=== PATIENT | female | born 1975 | race Caucasian/White ===

== ENCOUNTER 2020-05-19 00:23 | Emergency (ER) | payer SELFPAY ==
[~2020-05-19] VITALS: Ht 152.4 cm; Wt 91.2 kg
--- OUTSIDE RECORDS SUMMARY | ~2020-05-19 | XMS | Encounter Summary ---
Demographics + + + | Address | [address] | | | [place] [address] | + + + | Home Phone | | + + + | Preferred Language | Unknown | + + + | Marital Status | Single | + + + | Pentecostal Affiliation | Unknown | + + + | Race | White | + + + | Ethnic Group | Not or | + + + Author + + + | Author | [facility] | | | and [place] | + + + | Organization | [facility] | | | and [place] | + + + | Address | Unknown | + + + | Phone | Unavailable | + + + Support + + +---------+ + | Name | Relationship | Address | Phone | + + +---------+ + | Jamal Moss | ECON | Unknown | | + + +---------+ + Care Team Providers + +------+ + | Care Assistant Corporation Counsel Name | Role | Phone | + +------+ + | Robel Lujan MD | PCP | | + +------+ + Reason for Visit +---------+ + | Reason | Comments | +---------+ + | Post Op | neck mass | +---------+ + Encounter Details +--------+---------+ + + + | Date | Type | Department | Care Team | Description | +--------+---------+ + + + | 11/20/ | Office | [facility] | Joel Luna MD | Neck mass (Primary | | 2018 | Visit | OTOLARYNGOLOGY [address] | [address] [place] | Dx) | | | | [address] | [address] [place], [place] | | | | | [place], [place] | [address] | | | | | [address] | | | | | | [phone] | | | +--------+---------+ + + + Social History + + + +--------+------+ | Tobacco Use | Types | Packs/Day | Years | Date | | | | | Used | | + + + +--------+------+ | Current Some Day | Cigarettes | 0.25 | 18 | | | Smoker | | | | | + + + +--------+------+ + +---+---+---+ | Smokeless Tobacco: | | | | | Never Used | | | | + +---+---+---+ + + +---------+ + | Alcohol Use | Drinks/Week | oz/Week | Comments | + + +---------+ + | No | | | | + + +---------+ + + + + | Sex Assigned at | Date Recorded | | | | + + + | Not on file | | + + + documented as of this encounter Last Filed Vital Signs + + + + + | Vital Sign | Reading | Time Taken | Comments | + + + + + | Blood Pressure | - | - | | + + + + + | Pulse | 64 | 11/20/2017 4:07 PM | | | | | PST | | + + + + + | Temperature | - | - | | + + + + + | Respiratory Rate | - | - | | + + + + + | Oxygen Saturation | 96% | 11/20/2017 4:07 PM | | | | | PST | | + + + + + | Inhaled Oxygen | - | - | | | Concentration | | | | + + + + + | Weight | 100.7 kg (222 lb) | 11/20/2017 4:07 PM | | | | | PST | | + + + + + | Height | 152.4 cm (5') | 11/20/2017 4:07 PM | | | | | PST | | + + + + + | Body Mass Index | 43.36 | 11/20/2017 4:07 PM | | | | | PST | | + + + + + documented in this encounter Progress Notes Joel Luna MD - 11/20/2017 4:30 PM PSTPatient is postop removal of a mass in the right shoulder area and she comes in for follow-up visit. The final path report indicates she souza d 6 reactive nodes in this area but no evidence of any lymphoma or cancer. She also had a l ot of fatty tissue in question of the lipoma at the time of surgery. Examination: The right shoulder area is healing very nicely. There is no evidence of any i nfection. The suture was removed without difficulty and this allowed the patient more comfo rtable. She's had some pain in the occipital nerve area and it's helped a lot with uses vasu e Aleve. Impression: Postop stable with reactive cervical lymph nodes. Plan: Patient will use the Aleve to help her with the discomfort and if there is a further or increasing problems she'll recheck with ENT. documented in this encounter Plan of Treatment Not on filedocumented as of this encounter Visit Diagnoses + + | Diagnosis | + + | Neck mass - Primary Swelling, mass, or lump in head and neck | + + documented in this encounter"
--- OUTSIDE RECORDS SUMMARY | ~2020-05-19 | XMS | Encounter Summary ---
Demographics + + + | Address | [address] | | | [place] [address] | + + + | Home Phone | | + + + | Preferred Language | Unknown | + + + | Marital Status | Single | + + + | Lutheran Affiliation | Unknown | + + + | Race | White | + + + | Ethnic Group | Not or | + + + Author + + + | Author | [facility] | | | and [place] | + + + | Organization | [facility] | | | [...] Team Providers + +------+ + | Care Calender Wind Up Helper Name | Role | Phone | + +------+ + PCP | Unavailable | + +------+ + Reason for Visit Diagnostic/Screening (Routine) +--------+--------+ + + + + | Status | Reason | Specialty | Diagnoses / | Referred By | Referred To | | | | | Procedures | Contact | Contact | +--------+--------+ + + + + | Closed | | Radiology | Procedures | Provider, | | | | | | CT Soft | Historical, | | | | | | Tissue Neck | MD [address] | | | | | | [address] | [address] | | | | | | Contrast | [place] | | | | | | | [id number] | | +--------+--------+ + + + + Encounter Details +--------+ + + + + | Date | Type | Department | Care Team | Description | +--------+ + + + + | 08/02/ | Imaging | [facility] | Provider, | | | 2017 | Exam | [facility] | [address] | | | | | [address] | [address] | | | | | [address] | [place] [address] | | | | | [place] [address] | | | | | | [phone] | | | +--------+ + + + + Social History + +-------+ +--------+------+ | Tobacco Use | Types | Packs/Day | Years | Date | | | | | Used | | + +-------+ +--------+------+ | Never Assessed | | | | | + +-------+ +--------+------+ + + + | Sex Assigned at | Date Recorded | | | | + + + | Not on file | | + + + documented as of this encounter Plan of Treatment Not on filedocumented as of this encounter Procedures + +--------+ + + + | Procedure Name | Priori | Date/Time | Associated Diagnosis | Comments | | | ty | | | | + +--------+ + + + | CT SOFT TISSUE NECK | Routin | 07/15/2017 | | Results for this | | W WO CONTRAST | e | 8:20 AM | | procedure are in the | | | | PDT | | results section. | + +--------+ + + + documented in this encounter Results CT Soft Tissue Neck w wo Contrast (07/15/2017 8:20 AM PDT) + + | Specimen | + + | | + + + + + | Narrative | Performed At | + + + | External films | [facility] | | for comparison only - no result from [place]. | | + + + + +---------+ + + | Performing | Address | City/State/Zipcode | Phone Number | | Organization | | | | + +---------+ + + | [facility] | | | | + +---------+ + + documented in this encounter Visit Diagnoses Not on filedocumented in this encounter"
--- OUTSIDE RECORDS SUMMARY | ~2020-05-19 | XMS | Encounter Summary ---
Demographics + + + | Address | [address] | | | [place] [address] | + + + | Home Phone | | + + + | Preferred Language | Unknown | + + + | Marital Status | Single | + + + | Zoroastrianism Affiliation | Unknown | + + + | Race | White | + + + | Ethnic Group | Not or | + + + Author + + + | Author | [facility] | | | and [place] | + + + | Organization | [facility] | | | and [...] Team Providers + +------+ + | Care Natural Resource Officer Name | Role | Phone | + +------+ + | Robel Lujan MD | PCP | | + +------+ + Reason for Visit + + + | Reason | Comments | + + + | New Patient | neck lesions-right side,been there since March | + + + Evaluate & Treat (Routine) +--------+--------+ + + + + | Status | Reason | Specialty | Diagnoses / | Referred By | Referred To | | | | | Procedures | Contact | Contact | +--------+--------+ + + + + | Closed | | Otolaryngolog | Diagnoses | John, | Joel Luna | | | | y | neck lesion | Rad Cadet, | MD [address] | | | | | | [address] | | | | | | [address] | [place] [address] | | | | | | [place], | [place] | | | | | | [place] | [address] Phone: | | | | | | [address] | [phone] | | | | | | Phone: | Fax: | | | | | | [phone] | [phone] | | | | | | Fax: | | | | | | | [phone] | | +--------+--------+ + + + + Encounter Details +--------+---------+ + + + | Date | Type | Department | Care Team | Description | +--------+---------+ + + + | 08/21/ | Office | [facility] | Joel Luna MD | Neck mass (Primary | | 2017 | Visit | OTOLARYNGOLOGY [address] | [address] [place] | Dx) | | | | [address] | [address] [place] | | | | | [place] | [id number] | | | | | [address] | | | | | | [phone] | | | +--------+---------+ + + + Social History + +-------+ +--------+------+ | Tobacco Use | Types | Packs/Day | Years | Date | | | | | Used | | + +-------+ +--------+------+ | Current Some Day | | | | | | Smoker | | | | | + +-------+ +--------+------+ + +---+---+---+ | Smokeless Tobacco: | | | | | Current User | | | | + +---+---+---+ + + + | Sex Assigned at [...] + + + + | Pulse | 78 | 08/21/2017 10:15 AM | | | | | PST | | + + + + + | Temperature | - | - | | + + + + + | Respiratory Rate | 16 | 08/21/2017 10:15 AM | | | | | PST | | + + + + + | Oxygen Saturation | 98% | 08/21/2017 10:15 AM | | | | | PST | | + + + + + | Inhaled Oxygen | - | - | | | Concentration | | | | + + + + + | Weight | 103.4 kg (228 lb) | 08/21/2017 10:15 AM | | | | | PST | | + + + + + | Height | 152.4 cm (5') | 08/21/2017 10:15 AM | | | | | PST | | + + + + + | Body Mass Index | 44.53 | 08/21/2017 10:15 AM | | | | | PST | | + + + + + documented in this encounter H&P Notes Joel Luna MD - 08/21/2017 10:00 AM PST OTOLARYNGOLOGY HISTORY AND PHYSICAL EXAMINATION CHIEF COMPLAINT: Chief Complaint Patient presents with New Patient neck lesions-right side,been there since March HISTORY OF PRESENT ILLNESS: Patient noted about 2-3 months ago there was a small lump in the back of her neck on the ri ght-hand side just below and just back of her ear. It has continued to enlarge over the las t 3 months and patient was seen by her primary physician who advised that she has this furth er evaluated. She's had a little bit of discomfort in the lower neck but otherwise no other complaints. No difficulty swallowing and no problems with sore throat her vocal function p roblems. PAST MEDICAL HISTORY: Past Medical History: Diagnosis Date Diabetes mellitus (HCC) GERD (gastroesophageal reflux disease) PAST SURGICAL HISTORY: Past Surgical History: Procedure Laterality Date APPENDECTOMY 1999 SECTION HYSTERECTOMY 2000 OVARY REMOVAL removal of both ovaries in 2002 TONSILLECTOMY SOCIAL HISTORY: The patient reports that she has been smoking. She uses smokeless tobacco. FAMILY HISTORY: History reviewed. No pertinent family history. CURRENT MEDICATIONS: No current outpatient prescriptions on file. No current facility-administered medications for this visit. ALLERGIES: Allergies Allergen Reactions Penicillins Hives and Shortness Of Breath Latex Morphine Hives REVIEW OF SYSTEMS: GENERALLY: No fever, no night sweats, no anemia, no fatigue, no recent profound weight ch anges. EYES: No eye problems, no use of corrective lenses, no eye injury, no double vision, no bl indness. EARS, NOSE, AND THROAT: No changes in taste or smell, no hearing difficulty, no ringing in the ears, no ear drainage, no dizziness, no voice changes, no difficulty swallowing, no sig nificant snoring, no sleep apnea, no sinus problems, no major dental work. CARDIOVASCULAR: No heart attacks, no heart murmur, no heart fluttering, no chest pain, no ankle swelling. LUNG DISEASE: No shortness of breath, no cough, no tuberculosis, no bloody cough, no asth ma, no emphysema/COPD. PHYSICAL EXAMINATION: Pulse 78 | Resp 16 | Ht 1.524 m (5') | Wt 103.4 kg (228 lb) | SpO2 98% | BMI 44.53 kg/ m Patient is an alert 42-year-old female patient accompanied by her mother. Skin of the face nose and ears were all smooth and healthy. Ear canals are open and clean and drums are regina ar. No scalp irritation or injuries or tenderness is present. On the right neck below the ear and just behind the sternocleidomastoid muscle is a fairly large lymph node that's not 2 cm in size. No other obvious lymphadenopathy was palpable but this is the main 1 it's note d. The thyroid area was smooth and trachea was midline she moves her neck well without any pain or discomfort noted. Oral cavity no mass or lesions were noted. No mass seen in the o ropharynx and posterior pharyngeal wall is smooth. Tongue and soft palate are smooth the mo ves symmetrically. Nasal passages no obstruction no mass or lesions were noted. The left s bethany of the nose was then sprayed well with some Brenden-Synephrine and topical Xylocaine. The n citlalli passage had no mass or lesion noted. CT scan is reviewed and only the neck node is the abnormal finding. The rest of the hypopharyngeal laryngeal no obvious mass or lesions were noted. Special procedure: Fiberoptic scope was placed through the left nasal passage without diff iculty. No mass or lesion in this passage or in the nasopharynx. Posterolateral pharyngeal willis are very smooth. Base of tongue vallecula and epiglottis no mass or lesion or abnorm ality were noted and no evidence of thrush. The vallecula was open and clear. Vocal cords are smooth the moves symmetrically. No redness over the arytenoids and no mass or lesion in the laryngeal area. Piriform sinuses appeared open and clear. She had a normal-appearing hypopharyngeal laryngeal examination. Scope was then removed. ASSESSMENT: DIAGNOSES: 1. Neck mass PLAN: Patient will be scheduled to have the deep node on the right-hand side removed and sent for path examination. The procedure was described to the patient and she desires to move forwa rd and have this removed and this will be scheduled accordingly. ELECTRONICALLY SIGNED BY: Joel Luna MD, 08/21/2017 12:14 documented in this enco unter Plan of Treatment Not on filedocumented as of this encounter Visit Diagnoses + + | Diagnosis | + + | Neck mass - Primary Swelling, mass, or lump in head and neck | + + documented in this encounter"
--- OUTSIDE RECORDS SUMMARY | ~2020-05-19 | XMS | Encounter Summary ---
Demographics + + + | Address | [address] | | | [place] [address] | + + + | Home Phone | | + + + | Preferred Language | Unknown | + + + | Marital Status | Single | + + + | Restoration Affiliation | Unknown | + + + | Race | White | + + + | Ethnic Group | Not or | + + + Author + + + | Author | [facility] | | | and [place] | + + + | Organization | [facility] | | | [...] Team Providers + +------+ + | Care Die Storage Worker Name | Role | Phone | + +------+ + | Bakari Lujan MD | PCP | | + +------+ + Reason for Visit Auth/Cert +--------+--------+ + + + + | Status | Reason | Specialty | Diagnoses / | Referred By | Referred To | | | | | Procedures | Contact | Contact | +--------+--------+ + + + + | | | | Diagnoses | | | | | | | Neck mass | | | | | | | (R22.1) | | | | | | | Procedures | | | | | | | [place] | | | | | | | BX/REMV,LYMP | | | | | | | H NODE,DEEP | | | | | | | CERV | | | | | | | Excision of | | | | | | | Right Deep | | | | | | | Neck Node | | | +--------+--------+ + + + + Encounter Details +--------+---------+ + + + | Date | Type | Department | Care Team | Description | +--------+---------+ + + + | 11/12/ | Surgery | [facility] | Joel Lima MD | Excision of Right | | 2018 | | MED CTR OR [facility]TRA OP | [address] [place] | Deep Neck Node | | | | [address] | [address] [place] | | | | | [place] | [id number] | | | | | [address] | | | | | | [phone] | | | +--------+---------+ + + + [...] + + + | Blood Pressure | 117/77 | 11/12/2017 12:35 PM | | | | | PST | | + + + + + | Pulse | 66 | 11/12/2017 12:35 PM | | | | | PST | | + + + + + | Temperature | 36.2 C (97.2 F) | 11/12/2017 11:55 AM | | | | | PST | | + + + + + | Respiratory Rate | 15 | 11/12/2017 12:35 PM | | | | | PST | | + + + + + | Oxygen Saturation | 94% | 11/12/2017 12:35 PM | | | | | PST | | + + + + + | Inhaled Oxygen | - | - | | | Concentration | | | | + + + + + | Weight | 101 kg (222 lb 10.6 | 11/12/2017 10:12 AM | | | | oz) | PST | | + + + + + | Height | 152.4 cm (5') | 11/12/2017 10:12 AM | | | | | PST | | + + + + + | Body Mass Index | 43.49 | 11/12/2017 10:12 AM | | | | | PST | | + + + + + documented in this encounter Discharge Instructions Instructions Joel Lima MD - 11/12/2017Ok to shower. No heavy lifting [address] lisa strips 5 days. documented in this encounter Medications at Time of Discharge + + + +---------+ + + | Medication | Sig | Dispensed | Refills | Start | End Date | | | | | | Date | | + + + +---------+ + + | acetaminophen | Take 500-1,000 mg by | | 0 | | | | (TYLENOL) 500 mg | mouth every 6 hours | | | | | | tablet | as needed for Pain. | | | | | + + + +---------+ + + | | Take 1-2 tablets by | 20 | 0 | 11/12/19 | | | HYDROcodone-acetamin | mouth every 4 hours | tablet | | 18 | | | ophen (NORCO) 5-325 | as needed for Pain. | | | | | | mg per tablet | | | | | | + + + +---------+ + + | omeprazole | Take 20 mg by mouth | | 0 | | | | (PRILOSEC) 20 mg | Daily as needed. | | | | | | capsule | | | | | | + + + +---------+ + + documented as of this encounter H&P Notes Joel Lima MD - 11/12/2017 10:45 AM [facility] SURGICAL INTERIM HISTORY AND PHYSICAL UPDATE Pt. Name/Age/: David Harris 42 y.o. 1975 Date of admission: 11/12/2017 The current H&P was reviewed. The patient was reexamined. Re-evaluation of the patient co nfirms the necessity for the scheduled procedure. No change has occurred in the patient s condition since the H&P was completed less than 30 days ago. Lungs clear. Heart NSR withou t murmer. No URI. Electronically signed by: Joel Lima MD, 11/12/2017 10:45 [facility] at 2017 10:45 AM [facility], Joel Rosales MD - 11/07/2017 11:35 AM PST H&P Joel Lima MD Otolaryngology OTOLARYNGOLOGY HISTORY AND PHYSICAL EXAMINATION CHIEF COMPLAINT: [...] sore throat her vocal function p roblems. Old chart reviewed and no change in medications, allergies, or review of systems. PAST MEDICAL HISTORY: Past Medical History: Diagnosis Date Diabetes mellitus (HCC) GERD (gastroesophageal reflux disease) PAST SURGICAL HISTORY: Past Surgical History: Procedure Laterality Date APPENDECTOMY 1999 SECTION HYSTERECTOMY 2000 OVARY REMOVAL removal of both ovaries in 2001 TONSILLECTOMY SOCIAL HISTORY: The patient reports that [...] be scheduled accordingly. ELECTRONICALLY SIGNED BY: Joel Lima MD documented in this enco unter Miscellaneous Notes Op Note - Joel Lima MD - 11/12/2017 11:48 AM PST [address] [id number] OPERATIVE REPORT JOEL LIMA MD Patient: DAVID HARRIS Admitting: JOEL E CLARENCE MR #: [id number] LOC: PT TYPE: Adm Date: 11/12/2017 : 1975 DATE OF SURGERY: 11/12/2017. PREOPERATIVE DIAGNOSIS: Right neck mass. POSTOPERATIVE DIAGNOSIS: Right neck mass. OPERATION PERFORMED: Excision of right neck mass. OPERATING SURGEON: Joel Lima MD. COUNTY CORONER: Baldev Carrasco MD. FINDINGS: The patient had what appears to be a lipoma with a couple of reactive nodes present in the area just behind the sternocleidomastoid muscle on the right-hand side. PROCEDURE: After the area had been injected with some Xylocaine, the area was prepped and draped in a sterile fashion. A curvilinear incision was made in the skin over the lump area and carried down through the skin and platysma. Just below this area was the thickened tissue and it was dissected and then each area sealed with the Covidien system as the mass was removed. It appeared to have mostly a lipoma appearance, but also a couple of nodes in it. Once the entire mass was removed, the area below it was a sternocleidomastoid muscle and it was thoroughly palpated and no obvious mass or lesion noted below this area. The wound was then washed well with saline and a specimen sent for pathology examination. The deep layer was closed with 4-0 Vicryl suture and then the skin was closed with a 4-0 subcuticular Prolene. Mastisol was applied to the skin and then Steri-Strips. The patient was awakened from her anesthetic and returned to the recovery room in stable condition. PROGNOSIS: Immediate and remote is good. ESTIMATED BLOOD LOSS: 1 mL. JOEL LIMA MD Dictated by JOEL LIMA MD 11/12/2017 11:48:46 Transcribed on 11/12/2017 17:14:03 by sb job# [id number] Confirmation #: [id number] cc: BAKARI LUJAN MD TOp Note - Joel Lima MD - 11/12/2017 11:45 AM PSTSee dictation #[id number] si gned by Joel Lima MD at 11/12/2017 11:48 AM PSTBrief Op Note - Joel Lima MD - 11/12 11:45 AM PST Brief Operative Note David Harris 42 y.o. female 1975 [id number] Proc. Date 11/12/2017 Preop Dx Neck mass (R22.1) Postop Dx same Procedure Excision of Right Deep Neck Node Anesthesia General Surgeon Joel Lima MD - Primary Baldev Carrasco MD - Assisting E Learning Designer EBL Minimal Findings Findings consistent with scheduled procedure. No other abnormalities found. Complications none Specimens ID Type Source Tests Collected by Time Destination A : RIGHT NECK TISSUE Tissue Neck SPECIMEN TO PATHOLOGY Joel Lima MD 11/12/2017 1135 Pat hology Drains Electronically signed by: Joel Lima MD 11/12/2017 11[facility] at 2017 11:45 AM PSTdocumented in this encounter Plan of Treatment Not on filedocumented as of this encounter Procedures + +--------+ + + + | Procedure Name | Priori | Date/Time | Associated Diagnosis | Comments | | | ty | | | | + +--------+ + + + | BIOPSY / EXCISION | | 11/12/2017 | Neck mass (R22.1) | | | LYMPH NODE NECK DEEP | | 11:00 AM | | | | | | PST | | | + +--------+ + + + +---+--------+ | | Case | | | Notes | | | Case | | | #3 | +---+--------+ + +--------+ +---+ + | POC GLUCOSE | Routin | 11/12/2017 | | Results for this | | | e | 10:37 AM | | procedure are in the | | | | PST | | results section. | + +--------+ +---+ + | SURGICAL PATHOLOGY | Routin | 11/12/2017 | | Results for this | | EXAM | e | 12:00 AM | | procedure are in the | | | | PST | | results section. | + +--------+ +---+ + documented in this encounter Results POC Glucose (11/12/2017 10:37 AM PST) + +-------+ + + + | Component | Value | Ref Range | Performed | Pathologist | | | | | At | Signature | + +-------+ + + + | Glucose, | 98 | 70 - 109 mg/dL | [facility] | | | [facility] | | | | | | [facility] | | | | | [facility] - | | | | | | LABORATORY | | + +-------+ + + + + + | Specimen | + + | Blood | + + + + + + + | Performing | Address | City/State/Zipcode | Phone Number | | Organization | | | | + + + + + | [facility] | [address] | [place] | [phone] | | [facility] | | [address] | | | - LABORATORY | | | | + + + + + Surgical Pathology Exam (11/12/2017 12:00 AM PST) + + | Specimen | + + | | + + + + + | Narrative | Performed At | + + + | SPECIMEN(S): A RIGHT NECK TISSUE SPECIMEN SOURCE: A. RIGHT NECK | IN PATHOLOGY | | TISSUE CLINICAL HISTORY: R22.1 (localized swelling, mass and | [facility] | | lump, neck) FINAL PATHOLOGIC DIAGNOSIS: Right neck tissue: - | | | Six lymph nodes with reactive histologic features, negative for | | | evidence of metastatic malignancy. COMMENT: As part of [employer] | | | [facility]' Quality Improvement Program, this case was reviewed by | | | another member of our pathology staff. JVR:CLR:[facility]:C2NR GROSS | | | DESCRIPTION: The specimen is received in formalin in a container | | | labeled "David Harris, right neck tissue". Received are four unoriented | | | dxa-xnblx-jlfeoe fibrofatty tissue fragments with an aggregate | | | measurement of 4 x 3 x 0.9 cm. Each fragment is inked blue. The | | | specimen is then entirely submitted per the following cassette index: | | | Cassette Index: (A1) Largest fragment, bisected (A2) Second | | | largest fragment, bisected (A3) Smallest two fragments, one of which | | | is bisected CLR:[facility] MICROSCOPIC EXAMINATION: Histologic | | | sections of all submitted blocks are examined by light microscopy. | | | These findings, together with the gross examination, support the | | | pathologic diagnosis. PERFORMING LABORATORY: Tissue processing | | | and slide preparation were performed by [facility], [facility] [address] | | | [facility], [address], [place] [address] (Mass Spectrometry Manager: Nando | | | Isrrael Sims; CLIA#: [id number]). Professional interpretation was | | | performed by [facility], [facility] | | | Branch, [address], [place] [address] (Mass Spectrometry Manager: | | | Nando Sims M.D.; CLIA#: [id number]). Diagnostician: Nando | | | Mary Sims MD Pathologist Electronically Signed 11/14/2017 | | + + + + +---------+ + + | Performing | Address | City/State/Zipcode | Phone Number | | Organization | | | | + +---------+ + + | [facility] | | | | | [place] | | | | + +---------+ + + documented in this encounter Visit Diagnoses Not on filedocumented in this encounter Administered Medications + +--------+---------+------+------+------+ | Medication Order | MAR | Action | Dose | Rate | Site | | | Action | Date | | | | + +--------+---------+------+------+------+ + +---+ | albuterol 2.5 mg/3 mL nebulizer | | | solution 2.5 mg 2.5 mg, | | | Nebulization, ONCE PRN, Wheezing, | | | Starting e 11/12/17 at 1139, | | | For 1 dose, Notify anesthesia if | | | patient is wheezing and does not | | | have a history of asthma or COPD | | | or current smoking., | | | Recovery/Phase I | | + +---+ | | | + +---+ | dexamethasone (DECADRON) 4 | | | mg/mL injection 4 mg 4 mg, | | | Intravenous, ONCE PRN, Nausea, | | | Starting [facility] 11/12/17 at 1139, For | | | 1 dose, Only administer to | | | patients without a diagnosis of | | | diabetes., Recovery/Phase I | | + +---+ | | | + +---+ | ePHEDrine 50 mg/mL injection | | | 5-10 mg 5-10 mg, Intravenous, | | | EVERY 5 MIN PRN, if SBP <90 or | | | HR under 40, Starting [facility] 11/12/17 | | | at 1139, Hold if HR > 100. Hold | | | for SBP >140. Maximum total dose | | | 20mg., Recovery/Phase I | | + +---+ | | | + +---+ + + + +--------+---+---+ | fentaNYL (PF) injection 25-50 | Given by | 11/12/19 | 25 mcg | | | | mcg 25-50 mcg, Intravenous, | Other | 18 12:55 | | | | | EVERY 5 MIN PRN, Pain, Starting | | PM PST | | | | | 11/12/17 at 1139, Maximum | | | | | | | total dose 250 mcg. PACU IV | | | | | | | Narcotic Priority: Only use | | | | | | | fentanyl for immediate post-op | | | | | | | pain (one dose) or breakthrough | | | | | | | pain when any other IV narcotics | | | | | | | ordered have been ineffective (if | | | | | | | ordered). If both morphine and | | | | | | | hydromorphone are ordered, use | | | | | | | morphine first, and use | | | | | | | hydromorphone if morphine | | | | | | | ineffective., Recovery/Phase I | | | | | | + + + +--------+---+---+ +-------+ +--------+---+---+ | Given | 11/12/19 | 25 mcg | | | | | 18 12:29 | | | | | | PM PST | | | | +-------+ +--------+---+---+ | Given | 11/12/19 | 25 mcg | | | | | 18 12:09 | | | | | | PM PST | | | | +-------+ +--------+---+---+ + +---+ | | | + +---+ | HYDROmorphone (DILAUDID) | | | injection 0.25-0.5 mg 0.25-0.5 | | | mg, Intravenous, EVERY 5 MIN PRN, | | | Pain, Starting 11/12/17 at | | | 1139, Maximum total dose 2 mg. | | | PACU IV Narcotic Priority: Only | | | use fentanyl for immediate | | | post-op pain (one dose) or | | | breakthrough pain when any other | | | IV narcotics ordered have been | | | ineffective (if ordered). If | | | both morphine and hydromorphone | | | are ordered, use morphine first, | | | and use hydromorphone if morphine | | | ineffective., Recovery/Phase I | | + +---+ | | | + +---+ + +-------+ +-------+---+---+ | ketorolac (TORADOL) injection | Given | 11/12/19 | 30 mg | | | | 15-30 mg 15-30 mg, Intravenous, | | 18 1:46 | | | | | ONCE PRN, Pain, Maximum dose of | | PM PST | | | | | 30 mg. Reduce maximum dose to 15 | | | | | | | mg if patient has decreased | | | | | | | renal function, is 65 years or | | | | | | | older., Starting Sat11/12/17 at | | | | | | | 1139, For 1 dose, Maximum dose of | | | | | | | 30 mg. Reduce maximum dose to | | | | | | | 15 mg if patient has decreased | | | | | | | renal function, is 65 years or | | | | | | | older. Do NOT administer in | | | | | | | renal failure, if patient is on | | | | | | | any other anticoagulants, or | | | | | | | bleeding diathesis., | | | | | | | Recovery/Phase I | | | | | | + +-------+ +-------+---+---+ + +---+ | | | + +---+ | labetalol (TRANDATE) 5 mg/mL | | | injection 5 mg 5 mg, | | | Intravenous, EVERY 5 MIN PRN, For | | | SBP > 180, DBP > 100, Starting | | | Sat11/12/17 at 1139, Maximum | | | total dose 100mg. Notify | | | anesthesia if patient requires | | | more than 50mg. PARAMETERS KEEP: | | | SBP< 180, SBP >110 HR<110, HR>55, | | | Recovery/Phase I | | + +---+ | | | + +---+ + +---------+ +---+-------+---+ | lactated ringers (LR) infusion | New Bag | 11/12/19 | | 100 | | | at 10-100 mL/hr, Intravenous, | | 18 12:07 | | mL/hr | | | CONTINUOUS, Starting 11/12/17 | | PM PST | | | | | at 1030, TKO., Pre-op | | | | | | + +---------+ +---+-------+---+ +---------+ +--------+-------+---+ | New Bag | 11/12/19 | 1,000 | 100 | | | | 18 10:39 | mLs | mL/hr | | | | AM PST | | | | +---------+ +--------+-------+---+ +---+---+ | | | +---+---+ + +-------+ +-------+---+ + | lidocaine 1%-EPINEPHrine | Given | 11/12/19 | 3 mLs | | Surgical | | 1:100,000 injection PRN, | | 18 11:16 | | | Site | | Starting [facility] 11/12/17 at 1116, | | AM PST | | | | | Intra-op | | | | | | + +-------+ +-------+---+ + + +---+ | | | + +---+ | metoclopramide (REGLAN) 5 mg/mL | | | injection 10 mg 10 mg, | | | Intravenous, ONCE PRN, Nausea, | | | Vomiting, Starting [facility] 11/12/17 at | | | 1139, For 1 dose, Protect from | | | light., Recovery/Phase I | | + +---+ | | | + +---+ | midazolam (VERSED) 1 mg/mL | | | injection 0.5-1 mg 0.5-1 mg, | | | Intravenous, EVERY 5 MIN PRN, | | | Anxiety, Anxiety or agitation. | | | Please do not give unless pain | | | scores are under 7-of-10., | | | Starting [facility] 11/12/17 at 1139, | | | Maximum total dose 2 mg., | | | Recovery/Phase I | | + +---+ | | | + +---+ | ondansetron (ZOFRAN) injection | | | 4 mg 4 mg, Intravenous, ONCE | | | PRN, Nausea, Starting [facility] 11/12/17 | | | at 1139, For 1 dose, | | | Recovery/Phase I | | + +---+ | | | + +---+ + +-------+ +------+---+---+ | ondansetron (ZOFRAN) injection | Given | 11/12/19 | 4 mg | | | | 4 mg 4 mg, Intravenous, EVERY 6 | | 18 1:43 | | | | | HOURS PRN, Nausea, Vomiting, | | PM PST | | | | | Starting [facility] 11/12/17 at 1155, | | | | | | | First line agent Use PO option | | | | | | | unless NPO status or unable to | | | | | | | tolerate., Post-op/Phase II | | | | | | + +-------+ +------+---+---+ +---+---+ | | | +---+---+ + +-------+ +------+---+---+ | oxyCODONE (ROXICODONE) tablet | Given | 11/12/19 | 5 mg | | | | 2.5-10 mg 2.5-10 mg, Oral, EVERY | | 18 2:29 | | | | | 3 HOURS PRN, Pain, Starting Tue | | PM PST | | | | | 11/12/17 at 1155, First dose must | | | | | | | be the lowest dose, can titrate | | | | | | | to effective dose by repeat of | | | | | | | lowest dose every 60 minutes prn | | | | | | | pain, may not exceed maximum dose | | | | | | | ordered per interval. Use Pasero | | | | | | | Sedation Scale., Post-op/Phase | | | | | | | II | | | | | | + +-------+ +------+---+---+ + +---+ | | | + +---+ | promethazine (PHENERGAN) (IV | | | ONLY) injection 6.25 mg 6.25 mg, | | | Intravenous, EVERY 6 HOURS PRN, | | | Nausea, Vomiting, Starting Tue | | | 11/12/17 at 1355, Vesicant. When | | | ordered IV push: Dilute to | | | 10-20mL with NS. Give over 2-3 | | | minutes into large vein. Do not | | | give in hand/wrist or foot/ankle | | | vein. Max dose 12.5mg if giving | | | peripherally., Post-op/Phase II | | + +---+ | | | + +---+ | scopolamine (TRANSDERM-SCOP) 1 | | | mg/3 days 1 patch 1 patch, | | | Transdermal, ONCE PRN, PRN for | | | adult patients with history of | | | PONV. Hold for patients with | | | glaucoma, dementia, altered | | | mental status, or history of | | | allergy to Scopolamine. Apply | | | to mastoid process behind ear., | | | Starting 11/12/17 at 1012, For | | | 1 dose, PRN for adult patients | | | with history of PONV. Hold for | | | patients with glaucoma, dementia, | | | altered mental status, or | | | history of allergy to | | | Scopolamine. Apply to mastoid | | | process behind ear., Pre-op | | + +---+ | | | + +---+ documented in this encounter
--- OUTSIDE RECORDS SUMMARY | ~2020-05-19 | XMS | Encounter Summary ---
Demographics + + + | Address | [address] | | | [place] [address] | + + + | Home Phone | | + + + | Preferred Language | Unknown | + + + | Marital Status | Single | + + + | Gnosticism Affiliation | Unknown | + + + | Race | White | + + + | Ethnic Group | Not or | + + + Author + + + | Author | [facility] | | | and [place] | + + + | Organization | [facility] | | | [...] Team Providers + +------+ + | Care Manager Sourcing Name | Role | Phone | + +------+ + | Robel Lujan MD | PCP | | + +------+ + Encounter Details +--------+ + + + + | Date | Type | Department | Care Team | Description | +--------+ + + + + | 08/29/ | Episode | [facility] | Asha Lopez | | | 2017 | Changes | OTOLARYNGOLOGY [address] | [address] [employer] | | | | | [address] [facility] [address] | | | | | | [place] | | | | | | [address] | | | | | | [phone] | | | +--------+ + + + [...] filedocumented as of this encounter Visit Diagnoses Not on filedocumented in this encounter"
--- OUTSIDE RECORDS SUMMARY | ~2020-05-19 | XMS | Encounter Summary ---
Demographics + + + | Address | [address] | | | [place] [address] | + + + | Home Phone | | + + + | Preferred Language | Unknown | + + + | Marital Status | Single | + + + | Latter-Day Affiliation | Unknown | + + + | Race | White | + + + | Ethnic Group | Not or | + + + Author + + + | Author | [facility] | | | and [place] | + + + | Organization | [facility] | | | and [...] Team Providers + +------+ + | Care Tufting Machine Operator Name | Role | Phone | + [...] | | | | | | CT Head w | Historical, | | | | | | wo Contrast | [address] | | | | | | | [address] | | | | | | | [place] | | | | | | | [address] | | +--------+--------+ + + + + Encounter Details +--------+ + + + + | Date | Type | Department | Care Team | Description | +--------+ + + + + | 08/02/ | Imaging | [facility] | Provider, | | | 2017 | Exam | MED CTR EXTERNAL | [address] | | | | | IMAGING [address] | [address] | | | | | [address] [place] | [place] [address] | | | | | [place] [address] | | | | | | [phone] | | | +--------+ + + + [...] + +--------+ + + + | CT HEAD W WO | Routin | 07/15/2017 | | Results for this | | CONTRAST | e | 8:30 AM | | procedure are in the | | | | PDT | | results section. | + +--------+ + + + documented in this encounter Results CT Head w wo Contrast (07/15/2017 8:30 AM PDT) + + | Specimen | + + | | + + + + + | Narrative | Performed At | + + + | External films | [facility] | | for comparison only - no result from [place]. | | + + + + +---------+ + + | Performing | Address | City/State/Zipcode | Phone Number | | Organization | | | | + +---------+ + + | [facility] | | | | + +---------+ + + documented in this encounter Visit Diagnoses Not on filedocumented in this encounter"
--- OUTSIDE RECORDS SUMMARY | ~2020-05-19 | XMS | Encounter Summary ---
Demographics + + + | Address | [address] | | | [place] [address] | + + + | Home Phone | | + + + | Preferred Language | Unknown | + + + | Marital Status | Single | + + + | Restorationist Affiliation | Unknown | + + + | Race | White | + + + | Ethnic Group | Not or | + + + Author + + + | Author | [facility] | | | and [place] | + + + | Organization | [facility] | | | and [...] Team Providers + +------+ + | Care Cover Assembler Name | Role | Phone | + +------+ + | Robel Lujan MD | PCP | | + +------+ + Reason for Visit + +--------+ + | Reason | Onset | Comments | | | Date | | + +--------+ + | Insurance | 09/17/ | | | Authorization | 2017 | | + +--------+ + Encounter Details +--------+ + + + + | Date | Type | Department | Care Team | Description | +--------+ + + + + | 09/17/ | Telephone | [facility] [place] | Joel Luna MD | Insurance | | 2017 | | OTOLARYNGOLOGY [address] | [address] [place] | Authorization | | | | [address] [facility] [address] | [address] [place], [place] | | | | | [place], [place] | [address] | | | | | [address] | | | | | | [phone] | | | +--------+ + + + [...] + + documented as of this encounter Miscellaneous Notes Telephone Encounter - Chary Durham - 10/01/2017 4:57 PM PSTPatient called to update i nsurance. Everything is up to date now. Electronically signed by Chary Durham at 018 4:57 PM PSTTelephone Encounter - Agueda Harper - 09/24/2017 8:39 AM PSTAttempted to contact patient in regards to updating insurance information. I was not able to leave a [employer] e mail message, the phone line rang busy. Tried x2. Waiting final inspection supervisor back to update insurance . elephone Encounter - Asha Zamora Depalletizer Operator - 09/17/2017 10:16 AM PSTCalled and spoke to patient jona ing her know about her insurance. Patient states that she got new insurance information but doesn't start till September. She is going to call her insurance company to get all the inform ation then call us so we can enter that into the computer. Told patient to ask for sarah. Arambula ectronically signed by Asha Lopez Depalletizer Operator at 09/17/2017 10:18 AM PSTdocume nted in this encounter Plan of Treatment Not on filedocumented as of this encounter Visit Diagnoses Not on filedocumented in this encounter"
--- OUTSIDE RECORDS SUMMARY | ~2020-05-19 | XMS | Encounter Summary ---
Demographics + + + | Address | [address] | | | [place] [address] | + + + | Home Phone | | + + + | Preferred Language | Unknown | + + + | Marital Status | Single | + + + | Anabaptist Affiliation | Unknown | + + + | Race | White | + + + | Ethnic Group | Not or | + + + Author + + + | Author | [facility] | | | and [place] | + + + | Organization | [facility] | | | and [...] Team Providers + +------+ + | Care Hat Model Name | Role | Phone | + +------+ + | Robel Lujan MD | PCP | | + +------+ + Reason for Visit + +--------+ + | Reason | Onset | Comments | | | Date | | + +--------+ + | Surgery Appointment | 11/05/ | | | | 2017 | | + +--------+ + Encounter Details +--------+ + + + + | Date | Type | Department | Care Team | Description | +--------+ + + + + | 11/05/ | Telephone | [facility] | Joel Luna MD | Surgery Appointment | | 2018 | | OTOLARYNGOLOGY [address] | [address] [place] | | | | | [address] [facility] [address] | [address] [place], [place] | | | | | [place] | [address] | | | | | [address] | | | | | | [phone] | | | +--------+ + + + [...] this encounter Miscellaneous Notes Telephone Encounter - Bernice Etienne, Val[place] - 11/05/2017 4:18 PM PSTCalled meliton gustafson and let her know her surgery check in time for 0945 with a start time 1045 for 11/12/17 . Let patient know that she can't have anything to eat or drink after midnight the night bef ore and that she would need a ride home after the procedure. Patient asked if we was just go ing to poke her neck with a needle or if she was going to get an encision. I let patient charlene w that it does say encision. Electronically signed by Bernice Etienne, Valver at 4:22 PM PSTdocumented in this encounter Plan of Treatment Not on filedocumented as of this encounter Visit Diagnoses Not on filedocumented in this encounter"
--- OUTSIDE RECORDS SUMMARY | ~2020-05-19 | XMS | Encounter Summary ---
Demographics + + + | Address | [address] | | | [place] [address] | + + + | Home Phone | | + + + | Preferred Language | Unknown | + + + | Marital Status | Single | + + + | Nondenominational Affiliation | Unknown | + + + | Race | White | + + + | Ethnic Group | Not or | + + + Author + + + | Author | [facility] | | | and [place] | + + + | Organization | [facility] | | | [...] Team Providers + +------+ + | Care Subway Train Operator Name | Role | Phone | [...] | | | | | | | [place] | | | | | | | [...] | +--------+ + + + + | 11/12/ | Hospital | [facility] | Joel Lima MD | Neck mass | | 2018 | Encounter | [facility] | [address] [place] | | | | | [address] | [address] [place] | | | | | [place] | [address] | | | | | [address] | | | | | | [phone] | | | +--------+ + + + + Social History + + [...] + + + | Blood Pressure | 136/81 | 11/12/2017 2:00 PM | | | | | PST | | + + + + + | Pulse | 77 | 11/12/2017 2:00 PM | | | | | PST | | + + + + + | Temperature | 36.2 C (97.2 F) | 11/12/2017 11:55 AM | | | | | PST | | + + + + + | Respiratory Rate | 20 | 11/12/2017 2:00 PM | | | | | PST | | + + + + + | Oxygen Saturation | 98% | 11/12/2017 2:00 PM | | | | | PST [...] Joel Lima MD - 11/12/2017 10:45 AM [facility] SURGICAL INTERIM HISTORY AND PHYSICAL UPDATE Pt. [...] by: Joel Lima MD, 11/12/2017 10:45 [facility] at 2017 [facility] Rosales [facility] - 11/07/2017 11:35 AM [...] Lima MD - 11/12/2017 11:48 AM PST [address] [address] OPERATIVE REPORT JOEL LIMA MD Patient: DAVID HARRIS Admitting: JOEL LIMA MR #: [id number] LOC: PT TYPE: Adm Date: 11/12/2017 : 1975 DATE OF SURGERY: 11/12/2017. PREOPERATIVE DIAGNOSIS: Right neck mass. POSTOPERATIVE DIAGNOSIS: Right neck mass. OPERATION PERFORMED: Excision of right neck mass. OPERATING SURGEON: Joel Lima MD. HAUNTED HISTORY TOUR GUIDE: Baldev Carrasco MD. FINDINGS: The patient had [...] Transcribed on 11/12/2017 17:14:03 by sb job# [id number] Confirmation #: [id number] cc: BAKARI LUJAN MD TOp Note - Joel Lima MD - 11/12/2017 11:45 AM PSTSee dictation #[id number] si gned by Joel Lima MD at 11/12/2017 11:48 AM PSTBrief Op Note - Joel Lima MD - 11/12 11:45 AM PST Brief Operative Note David Harris 42 y.o. female 1975 [id number] Proc. Date 11/12/2017 Preop Dx Neck mass (R22.1) Postop Dx same Procedure Excision of Right Deep Neck Node Anesthesia General Surgeon Joel Lima MD - Primary Baldev Carrasco MD - Assisting Professional Development Director EBL Minimal Findings Findings consistent with scheduled procedure. No other abnormalities found. Complications none Specimens ID Type Source Tests Collected by Time Destination A : RIGHT NECK TISSUE Tissue Neck SPECIMEN TO PATHOLOGY Joel Lima MD 11/12/2017 1135 Pat hology Drains Electronically signed by: Joel Lima MD 11/12/2017 11:[facility] at [...] | + + + + + | [facility] | [address] | [place], [place] | [phone] | | [facility] | | [address] | | | - LABORATORY | | | | + + + + + Surgical Pathology Exam (11/12/2017 12:00 AM PST) + + | Specimen | + + | | + + + + + | Narrative | Performed At | + + + | SPECIMEN(S): A RIGHT NECK TISSUE SPECIMEN SOURCE: A. RIGHT NECK | [facility] | | TISSUE CLINICAL HISTORY: R22.1 (localized swelling, mass and | INCYTE | | lump, neck) FINAL PATHOLOGIC DIAGNOSIS: Right neck tissue: - | | | Six lymph nodes with reactive histologic features, negative for | | | evidence of metastatic malignancy. COMMENT: As part of [facility] | | | [facility]' Quality Improvement Program, this case was reviewed by | | | another member of our pathology staff. JVR:CLR:[facility]:C2NR GROSS | | | DESCRIPTION: The specimen is received in formalin in a container | | | labeled "David Harris, right neck tissue". Received are four unoriented | | | lap-httpv-pruxge fibrofatty tissue fragments with an aggregate | [...] of which | | | is bisected CLR:[facility] MICROSCOPIC EXAMINATION: Histologic | | | sections of all submitted blocks are examined by light microscopy. | | | These findings, together with the gross examination, support the | | | pathologic diagnosis. PERFORMING LABORATORY: Tissue processing | | | and slide preparation were performed by [facility] | | | [facility], [address], [place] [address] (Jewel Sorter: Nando | | | Isrrael Sims; CLIA#: [id number]). Professional interpretation was | | | performed by [facility], [facility] | | | Branch, [address] [place] [address] (Jewel Sorter: | | | Nando Sims M.D.; CLIA#: [id number]). Diagnostician: Nando | | | Mary Sims [...] + documented in this encounter Visit Diagnoses + + | Diagnosis | + + | Neck mass - Primary Swelling, mass, or lump in head and neck | + + documented in this encounter Administered Medications + +--------+---------+------+------+------+ | Medication Order | MAR | Action | Dose | Rate | Site | | | Action | Date | | | | + +--------+---------+------+------+------+ + +---+ | albuterol 2.5 mg/3 mL nebulizer | | | solution 2.5 mg 2.5 mg, | | | Nebulization, ONCE PRN, Wheezing, | | | Starting 11/12/17 at 1139, | | | For [...] ONCE PRN, Nausea, | | | Starting 11/12/17 at 1139, For | | | [...] | | | HR under 40, Starting Tu11/12/17 | | | at 1139, Hold if [...] PM PST | | | | | e 11/12/17 at 1139, Maximum | | | [...] MIN PRN, | | | Pain, Starting e 11/12/17 at | | | 1139, Maximum [...] | | | | | older., Starting 11/12/17 at | | | | | | [...] DBP > 100, Starting | | | 11/12/17 at 1139, Maximum | | | total [...] PST | | | | +---------+ +--------+-------+---+ + +---+ | | | + +---+ | metoclopramide (REGLAN) 5 mg/mL | | | injection 10 mg 10 mg, | | | Intravenous, ONCE PRN, Nausea, | | | Vomiting, Starting e 11/12/17 at | | | 1139, For [...] are under 7-of-10., | | | Starting 11/12/17 at 1139, | | | Maximum total dose 2 mg., | | | Recovery/Phase I | | + +---+ | | | + +---+ | ondansetron (ZOFRAN) injection | | | 4 mg 4 mg, Intravenous, ONCE | | | PRN, Nausea, Starting Sat11/12/17 | | | at 1139, For 1 [...] PST | | | | | Starting Sat11/12/17 at 1155, | | | | | [...] process behind ear., | | | Starting Sat11/12/17 at 1012, For | | | 1 [...]
--- OUTSIDE RECORDS SUMMARY | ~2020-05-19 | XMS | Encounter Summary ---
Demographics + + + | Address | [address] | | | [place] [address] | + + + | Home Phone | | + + + | Preferred Language | Unknown | + + + | Marital Status | Single | + + + | Baptism Affiliation | Unknown | + + + [...] Team Providers + +------+ + | Care Nursing Teacher Name | Role | Phone | + +------+ + | Robel Lujan MD | PCP | | + +------+ + Encounter Details +--------+ + + + + | Date | Type | Department | Care Team | Description | +--------+ + + + + | 08/26/ | Orders Only | [facility] [place] | Joel Luna MD | Neck mass (Primary | | 2017 | | OTOLARYNGOLOGY [address] | [address] [place] | Dx) | | | | [address] | [address] [place], [place] | | | | | [place], [place] | [address] | | | | | [address] | | | | | | [phone] | | | +--------+ + + + [...]
--- OUTSIDE RECORDS SUMMARY | ~2020-05-19 | XMS | Clinical Summary ---
Demographics + + + | Address | [address] | | | [place] [address] | + + + | Home Phone | | + + + | Preferred Language | Unknown | + + + | Marital Status | Single | + + + | Protestant Affiliation | Unknown | + + + | Race | White | + + + | Ethnic Group | Not or | + + + Author + + + | Author | [facility] | | | and [place] | + + + | Organization | [facility] | | | and [...] Team Providers + +------+ + | Care Semiconductor Technician Name | Role | Phone | + +------+ + | Robel Lujan MD | PCP | | + +------+ + Allergies + + + + + + | Active Allergy | Reactions | Severity | Noted | Comments | | | | | Date | | + + + + + + | Latex | Rash | Low | 08/20/20 | | | | | | 17 | | + + + + + + | Morphine | Hives | Medium | 08/20/20 | | | | | | 17 | | + + + + + + | Penicillins | Hives, Shortness Of | High | 08/20/20 | | | | Breath | | 17 | | + + + + + + Medications + + + +---------+------+------+-------+ | Medication | Sig | Dispensed | Refills | Star | End | Statu | | | | | | t | Date | s | | | | | | Date | | | + + + +---------+------+------+-------+ | omeprazole | Take 20 mg by mouth | | 0 | | | Activ | | (PRILOSEC) 20 mg | Daily as needed. | | | | | e | | capsule | | | | | | | + + + +---------+------+------+-------+ | acetaminophen | Take 500-1,000 mg by | | 0 | | | Activ | | (TYLENOL) 500 mg | mouth every 6 hours | | | | | e | | tablet | as needed for Pain. | | | | | | + + + +---------+------+------+-------+ | | Take 1-2 tablets by | 20 | 0 | / | | Activ | | HYDROcodone-acetamin | mouth every 4 hours | tablet | | 3/20 | | e | | ophen (NORCO) 5-325 | as needed for Pain. | | | 18 | | | | mg per tablet | | | | | | | + + + +---------+------+------+-------+ Active Problems + + + | Problem | Noted Date | + + + | Adverse effect of anesthesia | 11/12/2017 | + + + + + | Overview: slow to wake up | + + + + + | Smoker - Some Days | 11/12/2017 | + + + | Obesity, Class III, BMI 40-49.9 (Morbid obesity) | 11/12/2017 | + + + | Decreased glomerular filtration rate (GFR) | 11/12/2017 | + + + | H/O Kidney stones | 11/12/2017 | + + + | H/O Hysterectomy | 11/12/2017 | + + + | Neck mass | 08/26/2017 | + + + | GERD (gastroesophageal reflux disease) | 08/20/2017 | + + + | H/O Migraine headaches | 08/20/2017 | + + + | Diabetes mellitus type II - DIET Controlled | 08/20/2017 | + + + Social History + + [...] on file | | + + + Last Filed Vital Signs + + + [...] | | + + + + + Plan of Treatment + + +-------+ + | Health Maintenance | Due Date | Last | Comments | | | | Done | | + + +-------+ + | Vaccine: | | | | | Dtap/Tdap/Td (1 - | 4 | | | | Tdap) | | | | + + +-------+ + | Cervical Cancer | | | | | Screening (Pap) | 5 | | | + + +-------+ + | Vaccine: Influenza | | | | | (#1) | 0 | | | + + +-------+ + Results Not on filefrom Last 3 Months Insurance + +--------+ +--------+ +---------+------+ | Payer | Benefi | Subscriber | Effect | Phone | Address | Type | | | t Plan | ID | freeman | | | | | | / | | Dates | | | | | | Group | | | | | | + +--------+ +--------+ +---------+------+ | [employer] | PHP | [id number] | 09/30/19 | [phone] | | PPO | | PLAN | PERSON | | 18-Pre | 5 | | | | | AL | | sent | | | | | | OPEN | | | | | | | | OPTION | | | | | | + +--------+ +--------+ +---------+------+ + +--------+ +--------+ + + | Guarantor Name | Accoun | Relation to | Date | Phone | Billing Address | | | t Type | Patient | of | | | | | | | | | | + +--------+ +--------+ + + | Angela Decker | Person | Self [birth year] | [address] | | | al/[place] | | 1975 | [phone] | [place] | | | [place] | | | [address] (Home) | [address] | + +--------+ +--------+ + + Advance Directives + + + + + | Type | Date Recorded | Patient | Explanation | | | | Cotton Buyer | | + + + + + | Power of | | | | | Vehicle Body Sander | | | | + + + + + | Advance | 11/12/2017 9:56 | | | | Directive | AM | | | + + + + + + + + + + | Code Status | Date | Date | Comments | | | Activated | Inactivated | | + + + + + | Full Code | 11/12/2017 | 11/12/2017 | | | | 11:55 AM | 4:33 PM | | + + + + +"
--- OUTSIDE RECORDS SUMMARY | ~2020-05-19 | XMS | Encounter Summary ---
Demographics + + + | Address | [address] | | | [place] [address] | + + + | Home Phone [...] Team Providers + +------+ + | Care Ranch Supervisor Name | Role | Phone | + [...] | | | | | | | [place] | | | | | | | [...] + + + + | 11/12/ | Anesthesia | [facility] | Sarkis Rico | | | 2018 | Event | [facility] | PMD [address] | | | | | [address] | [place] | | | | | [place] | [address] | | | | | [address] | [phone] | | | | | [phone] | | | +--------+ + + + + Anesthesia Record + + + + + | Procedure Name | Responsible | Anesthesia Start | Anesthesia Stop Time | | | Anesthesiologist | Time | | + + + + + | Excision of Right | Sarkis Rico, | 11/12/17 1057 | 11/12/17 1156 | | Deep Neck Node | MD | | | | (Right Neck) | | | | + + + + + +----+---+ + + | Da | T | Event | Comment | | te | i | | | | | m | | | | | e | | | +----+---+ + + | 02 | 1 | | | | /1 | 0 | | | | 3/ | 5 | | | | 20 | 0 | | | | 18 | | | | +----+---+ + + | | 1 | An Checkout | Pre-use anesthesia machine/equipment checkout. | | | 0 | | | | | 5 | | | | | 0 | | | +----+---+ + + | | 1 | an rebekah now | Anesthesia Ready | | | 0 | | | | | 5 | | | | | 1 | | | +----+---+ + + | | 1 | An Start | Room ready, anesthesia equipment checked, essential drugs & | | | 0 | | equipment available. Patient Identity checked, anesthesia plan | | | 5 | | explained and consent obtained. Patient transported to OR, | | | 7 | | Monitors applied. Reassessment prior to anesthesia | | | | | induction/procedure. | +----+---+ + + | | 1 | An Start | | | | 0 | Data | | | | 5 | | | | | 8 | | | +----+---+ + + | | 1 | an rebekah now | | | | 1 | | | | | 0 | | | | | 0 | | | +----+---+ + + | | 1 | AN | Per surgeon request | | | 1 | Antibiotic | | | | 0 | declined | | | | 1 | | | +----+---+ + + | | 1 | Preoxygenat | Oxygen administered, patient sedated, ventilating spontaneously. | | | 1 | ed | | | | 0 | | | | | 3 | | | +----+---+ + + | | 1 | An | | | | 1 | Induction | | | | 0 | | | | | 5 | | | +----+---+ + + | | 1 | An | Smooth IV induction, mask airway established. Direct Laryngoscopy | | | 1 | Intubation | , ETT placed. BSEB/ETCO2 (auscultation and capnography) to | | | 0 | | confirm placement. Depth noted. Ventilator on. | | | 7 | | | +----+---+ + + | | 1 | Pre-Procedu | | | | 1 | ral Timeout | | | | 1 | Completed | | | | 5 | | | +----+---+ + + | | 1 | First | | | | 1 | Inc/Proc St | | | | 1 | | | | | 6 | | | +----+---+ + + | | 1 | Oropharynx | | | | 1 | Suctioned | | | | 4 | | | | | 8 | | | +----+---+ + + | | 1 | Extubated | | | | 1 | Deep | | | | 4 | | | | | 9 | | | +----+---+ + + | | 1 | an rebekah now | PACU | | | 1 | | | | | 5 | | | | | 1 | | | +----+---+ + + | | 1 | an stop | | | | 1 | data | | | | 5 | | | | | 1 | | | +----+---+ + + | | 1 | An Stop | Patient handed off to recovery nurse. | | | 5 | | | | | 6 | | | +----+---+ + + +------+ | Meds | +------+ + + + | Name | Total | + + + | midazolam | 2 mg | + + + | propofol | 175 mg | + + + | fentaNYL injection (2 mL) | 100 mcg | + + + | cisatracurium | 6 mg | + + + | ondansetron | 4 mg | + + + | dexamethasone | 6 mg | + + + | lactated ringers (LR) infusion | 1,800 mL | + + + + + | Name | + + | N2O Flow Rate (L/Min) | + + | O2 Flow Rate (L/Min) | + + | Insp O2 | + + | Exp SEV | + + | Air Flow Rate (L/Min) | + + + + | No blood administrations on file. | + + +--------+ + + + | Type | Details | Placement | Removal | +--------+ + + + | Periph | 11/12/17; 1038; Right; | 11/12/17 1038 by | 11/12/17 1423 by Florentin | | eral | Antecubital; [id number] | Ana Cortes RN | Natalya Keller RN | | IV | catheter system; 20 gauge; | | | | | distraction, intradermal | | | | | injection; 11/12/17; 1423 | | | +--------+ + + + | Airway | Placement Date: 11/12/17; | 11/12/17 110 by | 11/12/17 1155 by | | | Placement Time: 1107 (created via | Sarkis Rico, | Toni Sorensen RN | | | procedure documentation); Mask | MD | | | | Ventilation: EZ; Airway Grade: | | | | | 2a; Laryngoscope Blade Size: 3; | | | | | Attempts: 1; Airway Type: | | | | | endotracheal; Size: 6.5; Airway | | | | | Tube Secured At: 21; Trauma: | | | | | none; Other Equipment: stylette; | | | | | Placement Check: exhaled CO2 | | | | | detection device, video | | | | | laryngoscope, bilateral chest | | | | | rise, breath sounds equal | | | | | bilaterally; Removal Date: | | | | | 11/12/17; Removal Time: 1155; | | | | | Additional Comments: Neutral Head | | | | | Position, no neck flexion or | | | | | extension attempted. Smooth IV | | | | | induction, mask airway | | | | | established. Direct Laryngoscopy | | | | | with Gross Laryngoscope, ETT | | | | | placed under video guidance. | | | | | BSEB/ETCO2 (auscultation and | | | | | capnography) to confirm | | | | | placement. Depth noted. | | | | | Ventilator on. | | | +--------+ + + + | Read | 11/12/17; 1129; Right; neck; | 11/12/17 1129 by | 11/12/17 1423 by Florentin | | only - | 11/12/17; 1423 | Maninder Hernandez RN | L [place] Keller | | | | | | | Incisi | | | | | on | | | | +--------+ + + + documented in this encounter Social History + + + +--------+------+ | [...] + + documented as of this encounter OR Notes Anesthesia Postprocedure Evaluation - Sarkis Rico MD - 11/12/2017 12:33 PM PSTForm atting of this note might be different from the original. ANESTHESIA POSTANESTHESIA EVALUATION Angela Decker 42 y.o. female 1975 [id number] Procedure(s) Excision of Right Deep Neck Node (Right Neck) Cooperates? Yes Mental Status Performs simple tasks. Respiratory Satisfactory - Airway patent (self maintained). Cardiovascular Satisfactory - Blood pressure and heart rate acceptable Temperature Satisfactory Pain Satisfactory N/V Control Satisfactory Hydration Satisfactory - No signs of dehydration Complications None apparent Vitals: 11/12/17 1210 11/12/17 1215 11/12/17 1220 BP: 110/71 112/58 101/71 Pulse: 79 64 69 Temp: Resp: 21 14 14 SpO2: 100% 96% 92% Electronically signed by Sarkis Rico MD 11/12/2017 12:33 [facility] nesthesia Procedure Notes - Sarkis Rico MD - 11/12/2017 11: 17 AM PSTAssociated Order(s): ANE AIRWAY NOTEAnesthesia Airway Placement 11/12/2017 11:07 Preprocedure check: patient identified, oxygen, airway assessed, patient reassessment prior to induction, airway equipment checked and suction Mask ventilation: easy Successful technique: Gross Laryngoscope blade size: 3 Airway grade: 2a (Partial view of glottis) Other equipment: stylette Attempts: 1 Airway type: endotracheal Size: 6.5 Cuffed: cuffed Route, reference point: right side of mouth Tube depth: 21 cm Tube secured with: adhesive tape Trauma: none Tube placement verification: carbon dioxide detection, equal bilateral breath sounds, bilat eral chest rise and video laryngoscope Performing provider: SARKIS RICO Comments: Neutral Head Position, no neck flexion or extension attempted. Smooth IV induction, mask airway established. Direct Laryngoscopy with Gross Laryngoscope, ETT placed under video guidance. BSEB/ETCO2 (auscultation and capnography) to confirm placement. Depth noted. Ventilator on. Electronically Signed by: Sarkis Rico MD ESig date/time : 11/12/2017 11:17 nesthesia Prepro cedure Evaluation - Sarkis Rico MD - 11/12/2017 7:13 AM PST ANESTHESIA PREANESTHESIA EVALUATION Angela Decker 42 y.o. female 1975 [id number] Procedure(s): Excision of Right Deep Neck Node (Right Neck) Review of Systems / Med History Pulmonary (+) smoking history Gastrointestinal/Hepatic (+) reflux/GERD Endocrine (+) Diabetes: type 2 (+) obesity: morbid BMI 40+ Other (+) arthritis Physical Exam Airway MP III, TM >3 FB, Mouth opening >2 FB. Neck: full ROM, extends >30 degrees. Jaw protru yehuda limited. CV Rhythm regular. Anesthesia Plan ASA 3 Type: General. Induction: Intravenous. Potential problems: None anticipated, none anticipated. Monitors: Standard ASA monitors. Consent statement:Anesthetic plan, alternatives, risks and benefits discussed with patient. Risks discussed included (but were not limited to): sore throat, pain, disability, perioper ative CV events, infection, muscle aches, voice injury, drug reaction, heart problems, nause a, respiratory events, . Consenting person understands and agrees to proceed. Patient Active Problem List: GERD (gastroesophageal reflux disease) H/O Migraine headaches Diabetes mellitus type II - DIET Controlled Neck mass Adverse effect of anesthesia Smoker - Some Days Obesity, Class III, BMI 40-49.9 (Morbid obesity) Decreased glomerular filtration rate (GFR) H/O Kidney stones H/O Hysterectomy . Electronically Signed by: Sarkis Rico MD ESig date/time: 11/12/2017 7:13 documented in thi s encounter Plan of Treatment Not on filedocumented as of this encounter Procedures + +--------+ + + + | Procedure Name | Priori | Date/Time | Associated Diagnosis | Comments | | | ty | | | | + +--------+ + + + | ANE AIRWAY NOTE | Routin | 11/12/2017 | | Results for this | | | e | 11:17 AM | | procedure are in the | | | | PST | | results section. | + +--------+ + + + documented in this encounter Results Anesthesia Airway Note (11/12/2017 11:17 AM PST) + + + | Narrative | Performed At | + + + | Sarkis Rico MD 11/12/2017 11:17 Anesthesia Airway | | | Placement 11/12/2017 11:07 Preprocedure check: patient identified, | | | oxygen, airway assessed, patient reassessment prior to induction, | | | airway equipment checked and suction Mask ventilation: easy | | | Successful technique: Gross Laryngoscope blade size: 3 Airway | | | grade: 2a (Partial view of glottis) Other equipment: stylette | | | Attempts: 1 Airway type: endotracheal Size: 6.5 Cuffed: cuffed | | | Route, reference point: right side of mouth Tube depth: 21 cm Tube | | | secured with: adhesive tape Trauma: none Tube placement | | | verification: carbon dioxide detection, equal bilateral breath | | | sounds, bilateral chest rise and video laryngoscope Performing | | | provider: SARKIS RICO Comments: Neutral Head Position, no | | | neck flexion or extension attempted. Smooth IV induction, mask | | | airway established. Direct Laryngoscopy with Gross Laryngoscope, | | | ETT placed under video guidance. BSEB/ETCO2 (auscultation and | | | capnography) to confirm placement. Depth noted. Ventilator on. | | | Electronically Signed by: Sarkis Rico MD | | | ESig date/time: 11/12/2017 11:17 | | | | | + + + + + | Procedure Note | + + | Sarkis Rico MD - 11/12/2017 11:17 AM PST Anesthesia Airway | | Placement11/12/2017 11:07Preprocedure check: patient identified, oxygen, airway assessed, | | patient reassessment prior to induction, airway equipment checked and suctionMask | | ventilation: easySuccessful technique: McGrathLaryngoscope blade size: 3 Airway grade: | | 2a (Partial view of glottis)Other equipment: styletteAttempts: 1Airway type: | | endotrachealSize: 6.5Cuffed: cuffedRoute, reference point: right side of mouthTube | | depth: 21 cmTube secured with: adhesive tapeTrauma: noneTube placement verification: | | carbon dioxide detection, equal bilateral breath sounds, bilateral chest rise and video | | laryngoscopePerforming provider: SARKIS RICO PComments: Neutral Head Position, no | | neck flexion or extension attempted. Smooth IV induction, mask airway | | established.Direct Laryngoscopy with Gross Laryngoscope, ETT placed under video | | guidance. BSEB/ETCO2 (auscultation and capnography) to confirm placement. Depth noted. | | Ventilator on.Electronically Signed by: Sarkis Rico MD | | ESig date/time: 11/12/2017 11:17 | |Tube depth: 21 cm | |Tube secured with: adhesive tape | |Trauma: none | |Tube placement verification: carbon dioxide detection, equal bilateral breath sounds, bilat eral chest rise and video laryngoscope | |Performing provider: SARKIS RICO | | | |Comments: Neutral Head Position, no neck flexion or extension attempted. | |Smooth IV induction, mask airway established. | |Direct Laryngoscopy with Gross Laryngoscope, ETT placed under video guidance. BSEB/ETCO2 (auscultation and capnography) to confirm placement. Depth noted. Ventilator on. | | | | | |Electronically Signed by: Sarkis Rico MD ESig date/time : 11/12/2017 11:17 | | | + + documented in this encounter Visit Diagnoses Not on filedocumented in this encounter Administered Medications + +--------+ +------+------+------+ | Medication Order | MAR | Action | Dose | Rate | Site | | | Action | Date | | | | + +--------+ +------+------+------+ | cisatracurium (NIMBEX) | Given | 11/12/19 | 6 mg | | | | injection Intravenous, PRN, | | 18 11:05 | | | | | Ventilator Dyssynchrony, Starting | | AM PST | | | | | 11/12/17 at 1105, Anesthesia | | | | | | | Intra-op | | | | | | + +--------+ +------+------+------+ +---+---+ | | | +---+---+ + +-------+ +------+---+---+ | dexamethasone (PF) 10 mg/mL | Given | 02/13/20 | 6 mg | | | | injection Intravenous, PRN, | | 18 11:01 | | | | | Starting 11/12/17 at 1101, | | AM PST | | | | | Anesthesia Intra-op | | | | | | + +-------+ +------+---+---+ +---+---+ | | | +---+---+ + +-------+ +--------+---+---+ | fentaNYL (PF) injection | Given | 11/12/19 | 50 mcg | | | | Intravenous, PRN, Pain, Starting | | 18 11:06 | | | | | 11/12/17 at 1103, Anesthesia | | AM PST | | | | | Intra-op | | | | | | + +-------+ +--------+---+---+ +-------+ +--------+---+---+ | Given | 11/12/19 | 50 mcg | | | | | 18 11:03 | | | | | | AM PST | | | | +-------+ +--------+---+---+ +---+---+ | | | +---+---+ + +-------+ +------+---+---+ | midazolam (VERSED) 1 mg/mL | Given | 11/12/19 | 2 mg | | | | injection Intravenous, PRN, | | 18 11:03 | | | | | Anxiety, Starting Sat11/12/17 at | | AM PST | | | | | 1103, Anesthesia Intra-op | | | | | | + +-------+ +------+---+---+ +---+---+ | | | +---+---+ + +-------+ +------+---+---+ | ondansetron (ZOFRAN) injection | Given | 11/12/19 | 4 mg | | | | Intravenous, PRN, Nausea, | | 18 11:01 | | | | | Vomiting, Starting Sat11/12/17 at | | AM PST | | | | | 1101, Anesthesia Intra-op | | | | | | + +-------+ +------+---+---+ +---+---+ | | | +---+---+ + +-------+ +--------+---+---+ | propofol (DIPRIVAN) injection | Given | 11/12/19 | 175 mg | | | | Intravenous, PRN, Starting Tue | | 18 11:05 | | | | | 11/12/17 at 1105, Anesthesia | | AM PST | | | | | Intra-op | | | | | | + +-------+ +--------+---+---+ +---+---+ | | | +---+---+ documented in this encounter"
--- OUTSIDE RECORDS SUMMARY | ~2020-05-19 | XMS | Encounter Summary ---
Demographics + + + | Address | [address] | | | [place] [address] | + + + | Home Phone [...] Team Providers + +------+ + | Care Drawing Tracer Name | Role | Phone | + +------+ + PCP | Unavailable | + +------+ + Encounter Details +--------+ + + + + | Date | Type | Department | Care Team | Description | +--------+ + + + + | 08/20/ | Abstract | [facility] | Joel Luna MD | | | 2017 | | OTOLARYNGOLOGY [address] | [address] [place] | | | | | [address] [facility] [address] | [address] [place] | | | | | [place] | [address] | | | | | [phone] | | | | | | [phone] | | | +--------+ + + + [...] + + + | Blood Pressure | 138/82 | 08/20/2017 3:11 PM | | | | | PST | | + + + + + | Pulse | 61 | 08/20/2017 3:11 PM | | | | | PST | | + + + + + | Temperature | - | - | | + + + + + | Respiratory Rate | 18 | 08/20/2017 3:11 PM | | | | | PST | | + + + + + | Oxygen Saturation | 99% | 08/20/2017 3:11 PM | | | | | PST | | + + + + + | Inhaled Oxygen | - | - | | | Concentration | | | | + + + + + | Weight | 103.4 kg (228 lb) | 08/20/2017 3:11 PM | | | | | PST | | + + + + + | Height | 152.4 cm (5') | 08/20/2017 3:11 PM | | | | | PST | | + + + + + | Body Mass Index | 44.53 | 08/20/2017 3:11 PM | | | | | PST | | + + + + + documented in this encounter Plan of Treatment Not on filedocumented as of this encounter Visit Diagnoses Not on filedocumented in this encounter"
--- OUTSIDE RECORDS SUMMARY | ~2020-05-19 | XMS | Encounter Summary ---
Demographics + + + | Address | [address] | | | [place] [address] | + + + | Home Phone | | + + + | Preferred Language | Unknown | + + + | Marital Status | Single | + + + | Roman Catholic Affiliation | Unknown | + + + | Race | White | + + + | Ethnic Group | Not or | + + + Author + + + | Author | [facility] | | | and [place] | + + + | Organization | [facility] | | | [...] Team Providers + +------+ + | Care Can Washer Name | Role | Phone | + +------+ + | Robel Lujan MD | PCP | | + +------+ + Encounter Details +--------+ + + + + | Date | Type | Department | Care Team | Description | +--------+ + + + + | 11/05/ | Episode | [facility] | Asha Lopez | | | 2018 | Changes | OTOLARYNGOLOGY [address] | [employer] | | | | | [address] [facility] [address] | | | | | | [place] | | | | | | [address] | | | | | | [phone] | | | +--------+ + + + [...]
[~2020-05-19 00:23] MED LIST: METFORMIN HCL1000 M1 PO; NORCO 5-325 TA1 EACH PO; PEPCID20 MG PO; PERCOCET 5-3251 EACH PO; WELLBUTRIN XL300 MG PO; ZOFRAN ODT4 MG PO
--- NOTE | 2020-05-19 12:39 | EKG ---
[facility] [address] [facility] [place] [address] Signed Sinus tachycardia Possible Left atrial enlargement Incomplete right bundle branch block Borderline ECG When compared with ECG of 21-MAR-2017 13:59, No significant change was found Confirmed by HARLEEN ABBOTT MD ([id number]) on 05/19/2020 12:38:59 PM Electronically Signed By: HARLEEN ABBOTT MD 05/19/20 1239 PATIENT NAME: DAVID HARRIS Electrocardiogram DATE OF : 75 PHYSICIAN: HARLEEN ABBOTT MD REPORT #: [id number] REPORT IS CONFIDENTIAL AND NOT TO BE RELEASED WITHOUT AUTHORIZATION
== END 2020-05-19 04:45 | disposition home or self-care (01) ==
LOC: ED 00:23
DX: R55 Syncope and collapse (principal); E87.6 Hypokalemia; F17.200 Nicotine dependence, unspecified, uncomplicated; Z88.0 Allergy status to penicillin; Z88.5 Allergy status to narcotic agent
CPT/HCPCS: 80053; 83735; 84484; 84702; 84703; 85025; 85379; 93005; 93010; 96360; 99284-25; J7121

== ENCOUNTER 2021-03-21 14:36 | Emergency (ER) | payer SELFPAY ==
[~2021-03-21] VITALS: Ht 152.4 cm; Wt 84.4 kg
[2021-03-21] MEDS ORDERED: DOXYCYCLINE HY100 MG PO (19:53)
== END 2021-03-21 20:00 | disposition home or self-care (01) ==
LOC: ED 14:36
DX: L03.211 Cellulitis of face (principal); F17.200 Nicotine dependence, unspecified, uncomplicated; Z88.0 Allergy status to penicillin; Z88.5 Allergy status to narcotic agent
CPT/HCPCS: 99283

== ENCOUNTER 2022-07-10 09:20 | Emergency (ER) | payer OTHER ==
[~2022-07-10] VITALS: Ht 152.4 cm; Wt 84.4 kg
[~2022-07-10 09:20] MED LIST changes: +DOXYCYCLINE HY100 MG PO
[2022-07-10] MEDS ORDERED: ONDANSETRON ODT4 MG PO (12:32)
[2022-07-10] MEDS ORDERED: PRILOSEC OTC20 MG PO (12:32)
--- NOTE | 2022-07-10 21:54 | EKG ---
[facility] [address] [place], [place] [address] Signed Normal sinus rhythm Normal ECG When compared with ECG of 19-MAY-2020 00:31, No significant change was found Confirmed by HARLEEN ABBOTT MD ([id number]) on 07/10/2022 9:54:34 PM Electronically Signed By: HARLEEN ABBOTT MD 07/10/22 2154 PATIENT NAME: DAVID HARRIS JOHNATHAN Electrocardiogram DATE OF : 75 PHYSICIAN: HARLEEN ABBOTT MD REPORT #: [id number] REPORT IS CONFIDENTIAL AND NOT TO BE RELEASED WITHOUT AUTHORIZATION
== END 2022-07-10 12:44 | disposition home or self-care (01) ==
LOC: ED 09:20
DX: K29.70 Gastritis, unspecified, without bleeding (principal); Z20.822 Contact with and (suspected) exposure to COVID-19; M19.90 Unspecified osteoarthritis, unspecified site; F17.200 Nicotine dependence, unspecified, uncomplicated; Z88.0 Allergy status to penicillin; Z88.5 Allergy status to narcotic agent; Z79.899 Other long term (current) drug therapy
CPT/HCPCS: 36415; 71045; 80053; 81001; 83690; 83735; 84484; 85025; 87502; 93005; 93010; 96374; 96375; 99284-25; A9270; C9803; J1885; J2060; U0003

== ENCOUNTER 2024-05-24 04:24 | Emergency (ER) | payer OTHER ==
[~2024-05-24] VITALS: Ht 152.4 cm; Wt 97.9 kg
[~2024-05-24 04:24] MED LIST changes: +ONDANSETRON ODT4 MG PO; +PRILOSEC OTC20 MG PO
[2024-05-24] MEDS ORDERED: PREGABALIN150 MG PO (04:45)
[2024-05-24] MEDS ORDERED: MORPHINE SULFAT15 M1 PO (04:46)
[2024-05-24] MEDS ORDERED: DULOXETINE HCL30 MG PO (04:46)
[2024-05-24] MEDS ORDERED: OXYCODONE-ACET1 EAC1 PO (04:47)
[2024-05-24] MEDS ORDERED: CLEOCIN HCL300 MG PO (04:54)
[2024-05-24] MEDS ORDERED: CEFTRIAXONE/SODIUM CHLORIDE 2 GM/100 ML PIGGYBACK IV ONE (05:00)
[2024-05-24] MEDS ORDERED: clindamycin HCL 300 MG HOME.PACK PO ONE (05:00)
[2024-05-24 05:54] VITALS: BP 110/76
== END 2024-05-24 05:57 | disposition home or self-care (01) ==
LOC: ED 04:24
DX: K04.7 Periapical abscess without sinus (principal); F17.200 Nicotine dependence, unspecified, uncomplicated; Z88.0 Allergy status to penicillin; Z88.5 Allergy status to narcotic agent; Z79.899 Other long term (current) drug therapy
CPT/HCPCS: 96365; 99282-25; J0696